=== PATIENT | male | born 1980 | race African-American/Black ===

== ENCOUNTER 2019-02-04 07:13 | Emergency (ER) | payer OTHER ==
[~2019-02-04] VITALS: Ht 170.2 cm; Wt 77.1 kg
== END 2019-02-04 14:16 | disposition home or self-care (01) ==
LOC: ER 07:13
DX: M25.512 Pain in left shoulder (principal); R07.89 Other chest pain; M94.0 Chondrocostal junction syndrome [Tietze]

== ENCOUNTER 2019-08-14 22:01 | Emergency (ER) | payer OTHER ==
[~2019-08-14] VITALS: Ht 170.2 cm; Wt 77.1 kg
== END 2019-08-14 23:42 | disposition home or self-care (01) ==
LOC: ER 22:01
DX: S20.212A Contusion of left front wall of thorax, initial encounter (principal); S80.02XA Contusion of left knee, initial encounter; V19.9XXA Pedal cyclist (driver) (passenger) injured in unspecified traffic accident, initial encounter; Y93.89 Activity, other specified; Y92.89 Other specified places as the place of occurrence of the external cause; Y99.8 Other external cause status

== ENCOUNTER 2020-05-03 06:00 | Day surgery (SDC) | payer OTHER | END 2020-05-03 14:15 | disposition home or self-care (01) | LOC: CIR.AMB 06:00 | PROVIDERS: ATTEND Specialist | DX: K40.90 Unilateral inguinal hernia, without obstruction or gangrene, not specified as recurrent (principal); Z20.828 Contact with and (suspected) exposure to other viral communicable diseases ==